=== PATIENT | male | born 1945 | race Caucasian/White ===

== ENCOUNTER 2016-08-06 08:13 | Emergency (ER) | payer MEDICARE, OTHER ==
[~2016-08-06] VITALS: Ht 180.3 cm; Wt 68.2 kg
[~2016-08-06 08:13] MED LIST: AQUAOINT TP; ASPI-1093 PO; ATOR20TA86 PO; BISA5TAB12 PR; CARI350 PO; CILO100T20 PO; FOLI400 PO; GABA-531 PO; HYDR-3965 PO; INSNOV SQ; LEVE500T53 PO; MULT-1238 PO; MUPI15C TP; OLAN7.5T2 PO; PANT40TA25 PO; TRAM50TA4 PO; [UNRECOGNIZED DRUG - CODE] TP
[2016-08-06] MEDS ORDERED: PHEN100C23 PO (08:34)
[2016-08-06] MEDS ORDERED: ACETAMINOPHEN 325 MG TABLET PO ONE (08:45)
[2016-08-06] MEDS ORDERED: PERTUSS(ACELL),DIPH,TET VAC/PF 0.5 ML VIAL IM ONE (08:45)
[2016-08-06 08:47] LABS: GLUCOSE,POINT OF CARE 93 MG/DL (70-110)
[2016-08-06 11:28] VITALS: BP 142/96
== END 2016-08-06 12:14 | disposition home or self-care (01) ==
LOC: EMS 08:15
DX: S01.81XA Laceration without foreign body of other part of head, initial encounter (principal); F17.210 Nicotine dependence, cigarettes, uncomplicated; Z88.0 Allergy status to penicillin; Z88.8 Allergy status to other drugs, medicaments and biological substances; W05.0XXA Fall from non-moving wheelchair, initial encounter; Y93.89 Activity, other specified; Y92.89 Other specified places as the place of occurrence of the external cause; Y99.8 Other external cause status
CPT/HCPCS: 12011; 70450; 82962; 90471; 90715; 99284